=== PATIENT | male | born 1960 | race Native Hawaiian/Other Pacific Islander ===

== ENCOUNTER 2021-06-11 08:31 | Emergency (ER) | payer OTHER ==
[~2021-06-11] VITALS: Ht 172.7 cm; Wt 59.0 kg
[2021-06-11 08:38] VITALS: BP 114/57; TEMP 97.6
[2021-06-11 09:06] LABS: PLATELET COUNT 95 K/uL (142-355)
[2021-06-11 09:16] LABS: SODIUM 137 mmol/L (136-145)
== END 2021-06-11 10:04 | disposition home or self-care (01) ==
LOC: ED 08:31
PROVIDERS: Family Medicine
DX: R07.89 Other chest pain (principal); K22.70 Barrett's esophagus without dysplasia
CPT/HCPCS: 80053; 82553; 84484; 85027; 93005; 99283